=== PATIENT | female | born 1985 | race Caucasian/White ===

== ENCOUNTER 2020-05-19 09:37 | Day surgery (SDC) | payer OTHER, SELFPAY ==
[~2020-05-19] VITALS: Ht 167.6 cm; Wt 73.5 kg
[2020-05-19] MEDS ORDERED: MIDAZOLAM 2 MG/2 ML VIAL ONE ×2 (10:56)
[2020-05-19] MEDS ORDERED: fentaNYL citrate 0.05 MG/ML VIAL ONE (10:56)
[2020-05-19] MEDS ORDERED: LIDOCAINE VISCOUS 2% 20 ML UDC ONE (11:16)
[2020-05-19] MEDS ORDERED: fentaNYL citrate 0.05 MG/ML VIAL IVP ONE (12:55)
[2020-05-19] MEDS ORDERED: MIDAZOLAM 2 MG/2 ML VIAL IVP ONE (12:55)
[2020-05-19] MEDS ORDERED: LIDOCAINE VISCOUS 2% 20 ML UDC PO SCH (12:55)
== END 2020-05-19 12:40 | disposition home or self-care (01) ==
LOC: MFCC 09:37 → MDS 09:37
PROVIDERS: ATTEND Internal Medicine Gastroenterology
DX: R10.9 Unspecified abdominal pain (principal); K21.0 Gastro-esophageal reflux disease with esophagitis; Z11.59 Encounter for screening for other viral diseases; Z90.49 Acquired absence of other specified parts of digestive tract; Z79.899 Other long term (current) drug therapy
CPT/HCPCS: 43235; 81025; J2250; J3010; J7030; U0003